=== PATIENT | female | born 1935 | race Caucasian/White ===

== ENCOUNTER 2016-12-11 23:58 | Observation (INO) ==
[2016-12-12] MEDS ORDERED: DOPAMINE 400 MG/D5W 400 MG/500 ML IV.SOLN IV SCH (00:23)
[2016-12-12 00:55] LABS: EOS# 0.18 X1000 (0.0-0.7); EOS% 3.5 % (0.0-10.0); HEMATOCRIT 43.9 % (37.0-47.0); HEMOGLOBIN 14.9 g/dL (12.0-16.0); LYMPH# 1.49 X1000 (1.2-3.4); LYMPH% 28.9 % (20.5-51.1); MANUAL DIFF NEEDED? NO; MCH 31.4 PG (27-31); MCHC 33.9 g/dL (33-37); MCV 92.4 FL (81-99); MONO# 0.64 X1000 (0.11-0.59); MONO% 12.4 % (1.7-9.3); MPV 12.1 FL (7.4-10.4); NEUT% 54.2 % (42.2-75.2); PLT 190 X1000 (130-400); RBC 4.75 XMIL (4.2-5.4)
[2016-12-12 01:20] LABS: ALBUMIN 4.3 g/dL (3.5-5.0); CALCIUM 8.9 mg/dL (8.8-10.2); POTASSIUM 4.4 mmol/L (3.5-5.1); TOTAL BILIRUBIN 1.19 mg/dL (0.20-1.00); TOTAL PROTEIN 6.2 g/dL (6.3-8.3)
--- NOTE | 2016-12-12 01:52 | PROVIDER DOCUMENTATION ---
This chart was entered by Loki Quintanilla Scribe, acting as scribe for Bean Law MD. HPI-Cardiac General - General Stated Complaint: palpitations Time Seen by Provider: 12/11/16 23:59 Source: patient, family, EMS Allergies/Adverse Reactions: Patient Allergies Allergy/AdvReac Type Severity Reaction Status Date / Time ibuprofen Allergy Intermediate SWELLING Verified 12/12/16 00:27 Home Medications: Home Medication List Medication Instructions Recorded Confirmed Last Taken Type Furosemide [Furosemide] 20 mg PO PRN PRN 12/12/16 12/12/16 Unknown History L.acidoph,Paracasei, B.lactis 1 each PO QHS 12/12/16 12/12/16 12/11/16 20:00 History [Probiotic] Lorazepam [Lorazepam] 0.5 mg PO BID 12/12/16 12/12/16 12/11/16 21:00 History Potassium Chloride [Klor-Con M10] 10 meq PO PRN PRN 12/12/16 12/12/16 Unknown History Rivaroxaban [Xarelto] 20 mg PO QHS 12/12/16 12/12/16 12/11/16 20:00 History Sucralfate [Sucralfate] 1 gm PO PRN PRN 12/12/16 12/12/16 Unknown History - History of Present Illness-Cardiac Nature of Presenting Problem: Pt is a 81 yowf who presents to ER via EMS with CC of palpitations. Pt has cardiac pacemaker and reports that she was at home when she checkde her BP and HR and noticed that her HR were staying in the 30s and was unable to get HR to come up. EMS reports that pt's HR was averaging 40-80 BPMs with HR as low as 30s. Pt and family reports hx of pacemaker complications 1 year ago. Pt has [employer] Pacemaker. Quality of Pain: reports: none Severity in ED: severe Onset/Duration: just prior to arrival Timing: still present Palpitation Quality: slow heart rate History of arrythmia: reports: A-Fib Associated Symptoms: denies: back pain, diaphoresis, dizziness, edema, nausea, shortness of breath, swelling/lump in chest, vomiting Similar Symptoms Previously?: Yes Recently Seen Here or By Another Healthcare Provider: No Review of Systems - Adult - REVIEW OF SYSTEMS - ADULT Constitutional: denies: chills, fever, fatique, night sweats, weight gain, weight loss Eyes: reports: no symptoms reported Ears, Nose, Mouth & Throat: reports: no symptoms reported Cardiovascular: reports: irregular heart rate, palpitations. denies: chest pain , edema, heart murmur, orthopnea, poor circulation, PND, syncope Respiratory: reports: no symptoms reported Gastrointestinal: reports: no symptoms reported Genitourinary: reports: no symptoms reported Musculoskeletal: reports: no symptoms reported Integumentary: reports: no symptoms reported Neurological: reports: no symptoms reported Psychiatric: reports: no symptoms reported Endocrine: reports: no symptoms reported Hematologic/Lymphatic: reports: no symptoms reported Allergic/Immunologic: reports: no symptoms reported All Other Systems: Reviewed and Negative Past History - Adult - PAST MEDICAL HISTORY-ADULT Review of Records: reports: Nursing Assessment Review, Medications Reviewed - IMMUNIZATION STATUS Childhood Immunizations: See Nurse Assessment Flu Vaccine: See Nurse Assessment Physical Exam-General - PHYSICAL EXAM-ADULT Initial Vital Signs Reviewed: Yes - CONSTITUTIONAL General Appearance: appears well, alert, mild distress - NECK Neck: non-tender, full range of motion, supple. negative: limited range of motion, lymphadenopathy - RESPIRATORY Respiratory: chest non-tender, lungs clear, normal breath sounds, no pleuratic chest pain, no respiratory distress, no accessory muscle use. negative: respiratory distress, decreased breath sounds, accessory muscle use, wheezing - CARDIOVASCULAR Cardiovascular: normal peripheral pulses, bradycardia, irregularly irregular. negative: regular rate, rhythm, tachycardia - GASTROINTESTINAL (ABDOMEN) Abdominal Exam: normal bowel sounds, non tender, soft, no organomegaly, no pulsatile mass. negative: guarding, rebound, tenderness - PSYCHIATRIC Psych/Mental Status: normal mood/affect, normal thought content, normal thought process, oriented x 3 Progress - PLAN OF CARE/RESULTS Progress/Plan/Lab Results: Vital Signs - 8 hr 12/12/16 00:03 Pulse Rate 64 Respiratory Rate 25 H Blood Pressure 146/66 O2 Sat by Pulse Oximetry 99 Laboratory Results - last 24 hr 12/12/16 12/12/16 00:12 00:12 WBC 5.16 RBC 4.75 Hgb 14.9 Hct 43.9 MCV 92.4 MCH 31.4 H MCHC 33.9 RDW Std Deviation 13.1 Plt Count 190 MPV 12.1 H Immature Gran % (Auto) 0.0 Neut % (Auto) 54.2 Lymph % (Auto) 28.9 [place] % (Auto) 12.4 H Eos % (Auto) 3.5 Baso % (Auto) 1.0 H Immature Gran # (Auto) 0.00 Neut # (Auto) 2.80 Lymph # (Auto) 1.49 [place] # (Auto) 0.64 H Eos # (Auto) 0.18 Baso # (Auto) 0.05 Sodium 135 L Potassium 4.4 Chloride 97 L Carbon Dioxide 21 L Anion Gap 17 BUN 30 H Creatinine 1.2 H Estimated GFR/1.73 m2 43 BUN/Creatinine Ratio 25 Glucose 96 Calculated Osmolality 276 Calcium 8.9 Total Bilirubin 1.19 H AST 279 H ALT 172 H Alkaline Phosphatase 88 Total Protein 6.2 L Albumin 4.3 Globulin 1.9 Albumin/Globulin Ratio 2.3 Orders Category Date Time Status CHEST-PORTABLE [RAD] Stat Exams 12/12/16 00:13 Taken CBC WITH ELECTRONIC DIFF [HEME] Stat Lab 12/12/16 00:12 Completed CMP [COMPREHENSIVE METABOLIC PANEL] [CHEM] Stat Lab 12/12/16 00:12 Completed Dopamine 400 mg/D5w Med 12/12/16 00:23 Active 400 mg in 500 ml IV As Directed EKG [EKG] Stat Ther 12/11/16 23:57 Ordered Result Diagrams: 12/12/16 00:12 12/12/16 00:12 - REASSESSMENT Reassessment #1 Time Reassessed: 01:48 Status: improving (Rediscussed what pacemaker tech discovered. Discussed decision to admit to hospitalist. Pt and family verbally agree.) - EKG 1 Time of EKG reading by physician:: 23:54 EKG Read and Signed by:: Bean Law EKG Interpretation (*Must complete 3 of following elements*): Abnormal ( Ventricular paced rhythm with occasional non-capture;) Rate: 62 Rhythm: Ventricular paced rhythm - XRAY 1 XRAY: Bilateral XRAY Study: Chest Impression: See EMR Report XRAY Interpretation: Pacemaker visible, no acute abnormalities - Dr. Law - CONSULTS/PCP/HOSPITALIST Notification #1 *Consult/PCP/Hospitalist*: Cade (pacemaker tech) Time Discussed: 00:18 Consult Disposition: Will see in ED Departure - Departure Date of Disposition Decision: 12/12/16 Time of Disposition Decision: 01:51 DIAGNOSIS: Pacemaker complications Qualifiers: Encounter type: initial encounter Qualified Code(s): T82.9XXA - Unspecified complication of cardiac and vascular prosthetic device, implant and graft, initial encounter Disposition: ADMITTED INPATIENT 09 Certified Medical Emergency: Emergent Condition: Fair Referrals and Follow-Ups: None,PCP [Primary Care Provider] - - Critical Care Note This patient required my direct & personal management of CC.: No Attestation - Physician/ ALYSE Attestation Patient care was provided by Advanced Practice Provider:: No The physician spent face to face time with patient:: Yes Advanced Practice Provider documentation review:: Supervising physician onsite and consulted in the evaluation and care of this patient. The physician did have a face to face encounter with the patient. This chart was documented by the indicated scribe, (Loki Quintanilla Scribe) and accurately reflects the services I performed and decisions made by me, Bean Wang MD, as attested by the provider's signature.
[2016-12-12] MEDS ORDERED: CARAFATE PO PRN (03:03)
[2016-12-12] MEDS ORDERED: LASIX PO PRN (03:03)
[2016-12-12] MEDS ORDERED: NS 1,000 ML IV ONE (04:34)
[2016-12-12 05:12] LABS: HEMATOCRIT 44.1 % (37.0-47.0); HEMOGLOBIN 14.9 g/dL (12.0-16.0); MCH 31.7 PG (27-31); MCHC 33.8 g/dL (33-37); MCV 93.8 FL (81-99); MPV 11.3 FL (7.4-10.4); RBC 4.7 XMIL (4.2-5.4)
[2016-12-12 05:33] LABS: ALBUMIN 4.3 g/dL (3.5-5.0); CALCIUM 9.2 mg/dL (8.8-10.2); POTASSIUM 4.4 mmol/L (3.5-5.1); TOTAL BILIRUBIN 1.49 mg/dL (0.20-1.00); TOTAL PROTEIN 6.8 g/dL (6.3-8.3)
[2016-12-12] MEDS ORDERED: ZOFRAN IV PRN (07:08)
--- NOTE | 2016-12-12 08:44 | HISTORY AND PHYSICAL ---
TIME: 0430. CHIEF COMPLAINT: Palpitations. HISTORY OF PRESENT ILLNESS: Ms. Soto is an 81-year-old female with a past medical history of atrial fibrillation and atrial flutter. She has had a previous ablation and subsequent pacemaker placement. The patient initially had her pacemaker placed approximately 1 year ago though due to complication, had to have it replaced 2-3 weeks after initial placement. She has not had any complications since then. The patient states that for the past 2 days that she has been more fatigued than normal. She stated that last night that she began having episodes where she felt faint like she was going to pass out. The patient and her daughter did check her heart rate which, on 3-4 occasions prior to arrival, was showing readings of her heart rate being in the 30s and 40s. Her daughter also states at this time the patient became pale. She was slightly diaphoretic and was weak at this time. The patient did report some complaints of shortness of breath as well as a feeling of fainting and some nausea, though denied any chest pain. They did call EMS for transport to the ER. EMS did report that en route to the hospital , the patient did have a heart rate that was averaging anywhere from 40 to 80 beats per minute with a heart rate as low as 30 at 1 time. EKG performed in the ER did show a ventricular paced rhythm with occasional noncapture at a rate of 62. The patient's pacemaker was interrogated in the ER. The neon technician reported to ER physician that it looked as though the patient's pacemaker was failing to capture, though after some adjustment of the threshold, it is now functioning properly. The patient states that she sees 2 cardiologists at [place]. One is Dr. Liang. The other is Dr. Vickers. At this time, after her pacemaker was interrogated and the threshold has been adjusted, she has not had any further symptoms of bradycardia and is asymptomatic at this time. We will admit her for outpatient with observation for further monitoring. REVIEW OF SYSTEMS: A 12 point review of systems was conducted with the patient and all were negative except for pertinent positives as mentioned above in the HPI. PAST MEDICAL HISTORY: 1. History of atrial fibrillation, status post ablation and pacemaker placement approximately 1 year ago, currently on Xarelto. 2. Hypertension. 3. History of acute congestive heart failure, likely secondary to medication of Florinef. 4. Gastroesophageal reflux disease. 5. Diabetes mellitus, currently diet controlled at this time. 6. History of frequent urinary tract infections. 7. Osteoporosis. 8. Degenerative disk disease. PAST SURGICAL HISTORY: 1. Breast biopsy. 2. Hysterectomy. 3. Sinus surgery. 4. Pacemaker placement. SOCIAL HISTORY: Patient denies any alcohol, tobacco, or illicit drug use. She currently lives alone, though her daughter does live next door and is able to help when needed. She is recently . FAMILY HISTORY: Positive for heart disease as well as a myocardial infarction. Her dad secondary to this in his early 60s. Her mother at age 88. She had a history of congestive heart failure, coronary artery bypass graft, and stent placement, as well as diabetes mellitus. She also has a sister who secondary to pancreatic cancer. She has another sister who has a history of heart disease with stent placement and carotid stenosis. ALLERGIES: Patient reports allergies to ibuprofen. HOME MEDICATIONS: 1. Furosemide 20 mg p.o. p.r.n. for a weight gain over 2 pounds in 24 hours. 2. Probiotic 1 p.o. at bedtime. 3. Lorazepam 0.5 mg p.o. b.i.d. 4. Potassium chloride 10 mEq p.o. p.r.n. if the patient is taking Lasix. 5. Xarelto 20 mg p.o. at bedtime. 6. Carafate 1 g p.o. at bedtime. DIAGNOSTIC DATA/LABORATORY RESULTS: White blood cell count is 5.2, hemoglobin 14.9, hematocrit 44.1, platelet count is 207,000. Sodium 135, potassium 4.4, chloride 97, bicarb 21, BUN 30, creatinine 1.2, GFR is 43, glucose 96, calcium 8.9. Total bilirubin is 1.19, AST 279, ALT 172, alkaline phosphatase 88. CK 38, troponin is less than 0.01. EKG did show ventricular paced rhythm with occasional noncapture at a rate of 62. Chest x-ray showed no acute abnormalities. The patient does have a pacemaker noted to the left chest. PHYSICAL EXAMINATION: VITAL SIGNS: Temperature 97.8 degrees, heart rate 81, respirations 17, blood pressure 144/74. Oxygen saturation is 100% on room air. GENERAL: Ms. Soto is a pleasant, 81-year-old, female who is resting comfortably in the inpatient bed. She was in no acute distress. She was awake, alert, and able to answer all questions appropriately. HEENT: Head is atraumatic, normocephalic. Pupils equal, round, reactive to light, were 3 mm bilaterally and brisk. Oral mucosa is moist. Oropharynx is clear. NECK: Neck is supple. Trachea midline. No carotid bruits noted upon auscultation bilaterally. CARDIOVASCULAR: Patient has S1, S2. No murmurs, gallops, rubs appreciated, with a regular rate and rhythm. PULMONARY: Patient has symmetrical chest expansion bilaterally. Lung sounds are clear to auscultation in bilateral full rogers. ABDOMEN: Soft, nontender, nondistended. Bowel sounds are present in all 4 quadrants, were normoactive. EXTREMITIES: No cyanosis, clubbing, or edema noted. Pulse, motor, and sensory were intact in all extremities. Pedal pulses were 3+ bilaterally. INTEGUMENTARY: The patient's skin is pink, warm, dry, and intact. No lesions or sores noted. NEUROLOGIC: Patient is alert and oriented x4. Cranial nerves 2-12 are grossly intact. ASSESSMENT AND PLAN: 1. Pacemaker malfunction. As previously mentioned, the patient's pacemaker was interrogated which showed complications of failure to capture. After the neon technician adjusted the threshold, her pacemaker is now functioning normally. The patient at this time is asymptomatic. Cardiac enzymes were negative. We will continue with a series of cardiac enzymes as well. We have placed a consult with cardiology and will await their evaluation and further recommendations. 2. History of atrial fibrillation, status post ablation and pacemaker placement , currently on Xarelto. At this time, the patient does have a paced rhythm. Heart rate is within normal limits, maintaining in the 80s. We will continue her Xarelto. She has been placed on telemetry with vital signs every 4 hours. We will continue to monitor her cardiac status closely. 3. Chronic kidney disease stage III. This appears to be stable at this time. We will continue to follow. 4. Gastroesophageal reflux disease. We will continue her Carafate. The patient has been placed on the medical floor with telemetry. She will have vital signs every 4 hours. We will do strict intake and output. We will repeat a CBC and BMP in the morning. Further orders and recommendations pending hospital course, diagnostic studies, and physician evaluation. Dictated by RADHA Mccormack for Pepito Ortega MD cc: MD Gilda Mckenna MD pt examined, seen face to face, pt has normal cardiac exam, ekg shows bradycardia, will plan to observe and have cardiology evaluate in am APENOT MTDD
[2016-12-12] MEDS: ATIVAN PO SCH ×2 (09:29→21:01)
--- NOTE | 2016-12-12 10:46 | Diag Imaging Result Doc PS360 ---
CHEST-PORTABLE - 12/12/2016 INDICATION: palpitations TECHNIQUE: COMPARISON: 02/13/2016 FINDINGS: Stable left-sided pacemaker. Heart size and pulmonary vascularity is top normal. No focal infiltrates, pneumothorax, or pleural effusion. IMPRESSION: No acute disease. Electronically signed by Warren Albright 12/12/2016 10:43 AM
--- NOTE | 2016-12-12 14:32 | CONSULTATION ---
DATE OF CONSULTATION: 12/12/2016 This is the actual dictation. Please delete the previous dictation. HISTORY OF PRESENT ILLNESS: Ms. Soto is an 81-year-old lady with a history of atrial fibrillation, status post ablation for atrial fibrillation and permanent pacemaker implantation. She has had episodes of hypotension and is followed in [facility] by Dr. Liang. He recently saw a month ago and she had been doing well. During the initial pacemaker placement she had 3 leads placed. One of the leads was not functioning appropriately and she has two leads which have been functioning well. Of late, recently she noticed episodes of shortness of breath and having heart rates in the 30s and 40s. Patient was brought to the emergency room. [employer] cooling tower technician interrogated the permanent pacemaker and adjustments were made. Since then she has a heart rate of 70-80 and she feels much better. Denies any chest pain. There are no palpitations. There is no erick syncopal episode. However, with the low heart rate, she had become significantly weak and felt pale as well. REVIEW OF SYSTEMS: Fourteen point of review of systems was done.GI: There is no history of nausea, vomiting, diarrhea. There is no history of hematemesis or melena. Central Nervous System: No focal weakness to suggest a CVA or TIA. Genitourinary: There is no dysuria or hematuria. PAST MEDICAL HISTORY: 1. Atrial fibrillation, chronic, status post ablation and permanent pacemaker implantation. 2. Anticoagulation therapy on Xarelto. 3. History of heart failure. 4. Gastroesophageal reflux disease. 5. Diabetes. 6. Urinary tract infection . 7. Orthostatic hypertension. 8. Degenerative joint disease. 9. History of breast biopsy. 10. Hysterectomy. SOCIAL HISTORY: She does not smoke. Does not drink. ALLERGIES: Other than ibuprofen, she is not known to be allergic to any medications. PHYSICAL EXAMINATION: Vital Signs: Blood pressure was 150/70. Cardiovascular System: Normal jugular venous pressure. There is no thyromegaly. No carotid bruit. First and second heart sounds were heard. There is no S3 gallop. Respiratory System: Normal air entry. There are no crepitations or rhonchi. Abdomen: Soft, nontender. There was no guarding or rigidity. Bowel sounds were heard. Central nervous system: Alert. Was moving all 4 extremities. Extremities: Examination of extremities reveal no pedal edema. Peripheral pulses were palpable. IMAGING: Chest x-ray was unremarkable. ASSESSMENT AND PLAN: Ms. Desmond Soto is an 81-year-old lady who has atrial fibrillation status post ablation and permanent pacemaker implantation, has history of orthostatic hypotension in the past, gastroesophageal reflux disease, is anticoagulated for stroke prophylaxis, comes in with complaints of having episodes of low heart rate in the 30s and 40s. 1. [employer] renewals representative adjusted the pacemaker( there was intermittent loss of capture , autocapture algorithm was disabled and standard capture mode in place adjusted.and since then heart rate has been in the 70s she is feeling much better. 2. We will get an echocardiogram to assess cardiac and valvular function. Her laboratory examination revealed sodium 142, potassium 4.4, BUN 26 , creatinine 1.7. Cardiac enzymes were negative. She has mildly abnormal liver function tests with total bilirubin of 1.49, AST 194, ALT 187. I will defer follow up on liver function to Dr. Denny. We will also get a liver ultrasound in am 3. From a cardiac standpoint, have not made any other changes. If she has LV dysfunction would recommend stress test to rule out ischemia. Thanks for the consult. We will follow the hospital course. cc: MD Gilda Zabala MD MTDD
--- NOTE | 2016-12-12 15:19 | ECHO REPORT ---
ORDER DATE: 12/12/2016 MEASUREMENTS: 1. Left ventricular posterior wall 0.9 , interventricular septum 1.0. 2. Left ventricular diastolic diameter 3.0. 3. Aorta 3.0 , left atrium 4.0. 4. Aortic valve leaflets are trileaflet. Mitral valve was normal. Tricuspid valve was normal. Pulmonic valve was normal. Aortic valve leaflets are mildly sclerosed, opening normally. 5. There is trace pulmonary regurgitation. 6. Pacing leads were noted in the right chamber. 7. There is left atrial enlargement. 8. There is moderate mitral regurgitation. 9. There is mild tricuspid regurgitation. Peak velocity across the tricuspid valve was 2.2 m/sec. 10. Peak velocity across the aortic valve less than 2 m/sec. By Doppler studies there is no aortic stenosis or regurgitation. 11. Normal left ventricular cavity size. Estimated ejection fraction of 40-45%. There is apical akinesis. 12. There is no pericardial effusion or obvious intracardiac mass or thrombus seen. cc: MD Gilda Zabala MD
[2016-12-12] MEDS ORDERED: CARAFATE PO SCH (21:00)
[2016-12-12] MEDS ORDERED: XARELTO PO SCH (21:00)
[2016-12-12] MEDS ORDERED: CULTURELLE PO SCH (21:00)
--- NOTE | 2016-12-13 06:19 | EKG Report ---
Test Performed on : 12/11/2016 11:54:56 PM Test Reason : Unable to attach EKG to order Blood Pressure : / mmHG Vent. Rate : 062 BPM Atrial Rate : 270 BPM P-R Int : 000 ms QRS Dur : 176 ms QT Int : 506 ms P-R-T Axes : 000 -78 091 degrees QTc Int : 513 ms Atrial flutter. with variable AV block. Left axis deviation Right bundle branch block Left ventricular hypertrophy with repolarization abnormality Inferior infarct , age undetermined Anterolateral infarct , age undetermined Abnormal ECG When compared with ECG of 08-APR-2012 22:37, Atrial flutter. has replaced Sinus rhythm. Right bundle branch block is now present Anterior infarct is now present Anterolateral infarct is now present Unconfirmed Result
--- NOTE | 2016-12-13 09:16 | Diag Imaging Result Doc PS360 ---
EXAM: US ABDOMEN-COMPLETE INDICATION: abn lft COMPARISON: 01/30/2014 FINDINGS: The gallbladder appears normal with no stones, wall thickening, or pericholecystic fluid. The common bile duct is normal in diameter. Sonographic Torrez's sign was reported to be negative. The liver is grossly unremarkable. Portal venous flow is hepatopedal. The pancreas is partially obscured. The visualized portion is grossly unremarkable. The aorta and IVC are grossly unremarkable. The spleen is unremarkable. The kidneys are grossly unremarkable. IMPRESSION: Essentially unremarkable abdominal ultrasound. Electronically signed by David Lucas 12/13/2016 9:14 AM
[2016-12-13] MEDS: ATIVAN PO SCH (09:37)
[2016-12-13 11:31] VITALS: BP 139/74
--- NOTE | 2016-12-14 08:22 | DISCHARGE SUMMARY ---
ADMISSION DATE: 12/12/2016 DISCHARGE DATE: 12/13/2016 DISCHARGE DIAGNOSES: 1. Bradycardia, secondary to malfunctioning pacemaker. 2. History of atrial fibrillation status post ablation and pacemaker placement. 3. Essential hypertension. 4. Gastroesophageal reflux disease. 5. Type 2 noninsulin-dependent diabetes mellitus controlled with diet alone. 6. Osteoporosis. 7. Transaminitis. DISCHARGE PHYSICAL EXAMINATION: General: This is an elderly, frail, 81-year-old, lady in no apparent distress. Vital Signs: She is afebrile. Pulse 80, respirations 19, BP 139/74. CV: Regular rate and rhythm. Lungs: Clear. Abdomen: Soft, nontender, with active bowel sounds. No hepatosplenomegaly. No abdominal bruits. DISCHARGE INSTRUCTIONS: 1. Return to clinic in 1 week to see me, Dr. Willy Denny, in anticipation of transition of care visit. 2. Appointment with her mold machine operator, Dr. Trevino on December 24, 2016 at 3:15 p.m. 3. Activity as tolerated. 4. Healthy heart diet. MEDICATIONS: Lasix 20 mg daily on a p.r.n. basis if she gains 2 pounds in 24 hours. Culturelle 1 p.o. b.i.d., Ativan 0.5 mg b.i.d., Xarelto 20 mg daily, Carafate 1g p.o. at bedtime. HISTORY AND HOSPITAL COURSE: Ms. Desmond Soto presented to [facility] with complaint of dizziness and near syncope. She was noted to be markedly bradycardic. Heart rate had been in the 30s and 40s. Her cardiac enzymes were normal. An EKG demonstrated a ventricular paced rhythm with occasional non capture at a rate of 62. The patient's pacemaker was interrogated in the ER and the biological science technician felt that the pacemaker was failing to capture. Adjustments were made. Her heart rate improved and remained in the 70s and 80s throughout her hospitalization. She ruled out for myocardial ischemia by serial enzymes. An echocardiogram demonstrated EF of 40-45% with apical akinesis. There was moderate mitral regurgitation and mild tricuspid regurgitation. She remained in sinus rhythm. She denied any further chest pain, palpitations, near syncope or dizziness. We have made arrangements for her to see Dr. Trevino at [facility] [place] on December 24, 2016 at 3:15 p.m. She was noted to have elevated liver function tests on admission. Her total bilirubin was 1.49. AST 279 and ALT 172. Follow up LFTs demonstrated an AST of 194 and an ALT of 187. An ultrasound of the abdomen was unremarkable. A sedimentation rate, ferritin level, hepatitis profile, and ELSIE are pending at this time. I suspect the transaminitis was due to passive congestion. I will see her back in the office in 1 week to review laboratory studies and to recheck her liver function tests. Having reached maximum hospital benefit, the patient was discharged in stable condition. cc: Gilda Denny MD
== END 2016-12-13 14:09 | disposition home or self-care (01) ==
LOC: 3N 23:58 → ED 23:58 → SUPCPDRO 12-12 02:22 → SUATTDRO 12-12 02:22
PROVIDERS: ADMIT Internal Medicine; ATTEND Internal Medicine